=== PATIENT | male | born 1985 | race Caucasian/White ===

== ENCOUNTER 2021-12-08 06:28 | Emergency (ER) | payer OTHER, SELFPAY ==
[2021-12-08 06:35] VITALS: BP 113/77; PULSE 98; RESP 20; TEMP 36.4; O2SAT 99
--- NOTE | 2021-12-08 06:42 | ED.DENTAL ---
HPI - Dental/Oral General Chief complaint: Dental/Oral Stated complaint: toothache/jaw swollen Time Seen by Provider: 12/08/21 06:42 Source: patient History of Present Illness HPI Narrative: 36-year-old female presents to the ER -- left lower dental pain with jaw swelling since yesterday. She is scheduled to see a dentist for dental extraction. No fever. No other complaints. MD Complaint: tooth pain Teeth map: 1. carious/fractured 2. missing 3. missing 4. missing 5. missing 6. left lower jaw pain and swelling Onset (ago): day(s) ( dental pain for the past 2 days.) Duration: intermittent Severity: severe Relieving factors: nothing Exacerbating factors: cold and heat Context: history of dental caries Associated symptoms: gum swelling Treatment prior to arrival: none Related Data Home Medications Medication Instructions Recorded Confirmed gabapentin 300 mg PO TID 12/08/21 12/08/21 quetiapine 50 mg PO DAILY 12/08/21 12/08/21 Allergies Allergy/AdvReac Type Severity Reaction Status Date / Time codeine Allergy Unknown Verified 12/08/21 06:41 Review of Systems Review of Systems: All systems reviewed & are unremarkable except as noted in HPI and below Constitutional: Constitutional: Reports as per HPI and Reports no additional constitutional complaints Eyes: Eyes: Reports as per HPI and Reports no additional eye complaints ENT: Reports system reviewed and no additional complaints, except as documented and Reports as per HPI Comments: Extensive dental caries with pain left lower jaw with swelling Cardiovascular: Cardiovascular: Reports as per HPI and Reports no additional cardiovascular complaints Respiratory: Respiratory: Reports as per HPI and Reports no additional respiratory complaints Gastrointestinal: Gastrointestinal: Reports as per HPI and Reports no additional gastrointestinal complaints Genitourinary: Genitourinary: Reports no additional male genitourinary complaints and Reports as per HPI Musculoskeletal: Musculoskeletal: Reports no additional musculoskeletal complaints and Reports as per HPI Integumentary/Breasts: Skin/Breast: Reports system reviewed and no additional complaints, except as docu and Reports as per HPI Neurologic: Reports system reviewed and no additional complaints, except as documented and Reports as per HPI Psychiatric: Psychiatric: Reports no additional psychiatric complaints and Reports as per HPI Endocrine: Endocrine: Reports no additional endocrine complaints Hematologic/Lymphatic: Hematologic/Lymphatic: Reports no additional hematologic/lymphatic complaints and Reports as per HPI Allergic/Immunologic: Allergic/Immunologic: Reports no additional allergic/immunologic complaints and Reports as per HPI [facility] Past Medical History Medical History Dental caries Exam Const: General: no acute distress and alert Orientation/consciousness: patient oriented x3 HENMT: Head: normal to inspection Other: extensive dental caries of the left lower premolars and molars with disintegration of the teeth. Eyes: Conjunctivae: conjunctivae normal Pupils: Equal, round and reactive pupils present EOM: EOMs intact bilaterally Neck: Neck: normal visual inspection, no lymphadenopathy and no meningeal signs Chest: Chest palpation & inspection: normal inspection of the chest Resp: Effort & Inspection: normal respiratory effort Auscultation: clear to auscultation bilaterally Cardio: Rate: regular rate Rhythm: regular rhythm GI: Auscultation: normal bowel sounds : General: Yes no CVA tenderness Testes: Testes normal Back/Spine/Pelvis: Back: no CVA tenderness Skin: General skin exam: normal color Rashes: no rashes Neuro: General: patient oriented x3, moves all extremities and no meningeal signs Extrem: General: normal to inspection and no pedal edema Psych: Mental Status: mental status grossly normal
[2021-12-08] MEDS: CLINDAMYCIN HCL 150 MG CAP 300 MG PO (07:00)
[2021-12-08] MEDS: traMADol HCL (*CRX) 50 MG TABLET PO (07:00)
[2021-12-08 07:14] VITALS: BP 122/74; PULSE 79; RESP 18; O2SAT 99
== END 2021-12-08 07:16 | disposition home or self-care (01) ==
PROVIDERS: Emergency Provider Internal Medicine Critical Care Medicine; PCP Physician Assistant
DX: K08.89 Other specified disorders of teeth and supporting structures (principal); K02.9 Dental caries, unspecified; M79.89 Other specified soft tissue disorders
CPT/HCPCS: 99283; A9270